=== PATIENT | female | born 1950 | race Caucasian/White ===

== ENCOUNTER → 2016-08-24 | Outpatient (CLI) | payer MEDICARE ==
[~2016-08-24] MED LIST: ASPIRIN81 M2 PO; CARBAMAZEPINE300 MG PO; CELEXA20 MG PO; CLONIDINE PO; CLOPIDOGREL75 MG PO; CRANBERRY200 MG PO; DILTIAZEM 24HR240 M2 PO; GABAPENTIN300 M2 PO; HUMALOG KW100 UNIT/1; HYDROCODON-ACE1 EAC5 PO; IRON134 MG PO; ISOSORBIDE DINI30 MG PO; K-LOR HOSPITAL20 ME1 PO; LASIX80 MG PO; LOSARTAN POTASS50 MG PO; NITROSTAT0.4 MG SL; PREDNISONE PO; REMERON SOLTAB15 M1 PO; ROSUVASTATIN CA20 MG PO; SINGULAIR PO; SYMBICORT INH; TIROSINT25 MCG PO; TRESIBA FL100 UNIT/1 SUBQ; VITAMIN D35000 UNI1 PO; ZANTAC150 MG PO; ZITHROMAX500 MG PO; ZYRTEC10 M2 PO
--- NOTE | ~2016-08-24 | CR63 ---
[facility] A Service of [facility] RADIOLOGY TEXT RESULTS PATIENT: SHAYNE GONZALEZ LOCATION: [facility] : 50 UNIT #: [id number] AGE: [address]: KEHINDE ESCOBAR APRN SEX: F ORDER DR: [id number] [facility] [address] [facility]. [place], [place] [address] [id number] O MR#: [id number] Acc #: [id number] NAME: SHAYNE GONZALEZ : 1950 SEX: F STUDY DATE/TIME: 08/24/2016 10:37 UNIT: [facility] ROOM: STUDY DESCRIPTION: CR Chest 2 View Attending Physician: Ella Escobar Aprn Ordering Physician: Ella Escobar Aprn MEDICAL IMAGING REPORT This report is preliminary unless electronic signature is present EXAM Two views chest, 08/24/2016. HISTORY Cough. 1 TECHNIQUE PA and lateral radiographs of the chest are presented. COMPARISON STUDIES No comparisons. FINDINGS Dual lead cardiac pacemaker implanted over left chest with leads extending through left subclavian vein and terminating at right atrial and right ventricular levels. Heart normal in size. Mediastinal contours within normal limits. The lungs are well inflated. There is no indication of acute infectious or inflammatory disease, pleural effusion, or pneumothorax. No suspicious nodule. Visualized upper abdomen unremarkable. Dictated by... João Turcios M.D. THIS IS AN ELECTRONICALLY VERIFIED REPORT João Turcios M.D. at 08/25/2016 6:04 PM RICHI/asad TD: 08/24/2016 14:20 JOB #: [id number] [facility] A Service of [facility] RADIOLOGY TEXT RESULTS PATIENT: SHAYNE GONZALEZ LOCATION: [facility] : 50 UNIT #: [id number] AGE: [address]: KEHINDE ESCOBAR APRN SEX: F ORDER DR: MEDICAL IMAGING REPORT Page 1 of 1 COPY
== END | disposition home or self-care (01) ==
LOC: CRAD 10:11
DX: R05 Cough (principal); R06.2 Wheezing
CPT/HCPCS: 71020

== ENCOUNTER 2016-09-09 11:27 | Inpatient (IN) | payer MEDICARE, MEDICAID ==
--- NOTE | ~2016-09-09 | DS ---
Unit #: [id number] #: [id number] Patient: SHAYNE GONZALEZ [id number] [address] [address] [id number] I MR#: [id number] NAME: SHAYNE GONZALEZ ROOM: 564 Age: 65 Sex: F Admission Date: 09/09/2016 : 1950 Discharge Date: 09/12/2016 Attending Physician: Prince Caldera M.D. Primary Care Physician: No Primary Care Physician DISCHARGE SUMMARY FINAL DIAGNOSES 1. Acute on chronic hypoxic respiratory failure. 2. Mediastinal lymphadenopathy. 3. Pneumonia. SECONDARY DIAGNOSES 1. Hypertension. 2. Hyperlipidemia. 3. Atrial fibrillation, not on anticoagulation. 4. Coronary artery disease, status post cardiac stent placement in the past. 5. Gastroesophageal reflux disease. 6. Chronic obstructive pulmonary disease. 7. Chronic respiratory failure on 2 L of oxygen per nasal cannula. 8. Bipolar disorder. 9. Urinary incontinence. CONSULT Dr. Carcamo - Pulmonary. HOSPITAL COURSE The patient was admitted with frequent falls and seen through the emergency room. She had difficulty breathing and she was diagnosed with acute on chronic respiratory failure. She was treated for COPD with exacerbation. She had a CAT scan of her chest which showed pulmonary infiltrates and adenopathy and it was thought that this could represent resolving pneumonia from previous episode, treated with antibiotics and steroids. She was seen in conjunction with pulmonary, and her community-acquired pneumonia was treated with IV Rocephin and Zithromax. She was evaluated, suitable and stable for discharge and was subsequently discharged with recommendations per pulmonary and outpatient followup. MEDICATIONS Medications on discharge include: 1. Prednisone taper. 2. Carbamazepine 300 mg p.o. daily. 3. Gabapentin 300 mg p.o. b.i.d. 4. Celexa 20 mg p.o. daily. 5. Remeron 15 mg p.o. at bedtime. 6. Cetirizine 10 mg p.o. daily. 7. Dulera 200 mcg, one inhalation twice daily. 8. Cranberry juice extra 200 mg p.o. at bedtime. 9. Cardizem 240 mg p.o. daily. 10. Crestor, one tablet p.o. daily per home dose. Unit #: [id number] #: [id number] Patient: SHAYNE GONZALEZ 11. Catapres 0.2 mg p.o. t.i.d. as needed for elevated blood pressure. 12. Losartan 50 mg p.o. at bedtime. 13. Tresiba 80 units subcu at bedtime. 14. Humalog sliding scale. 15. Ferrous sulfate 134 mg p.o. b.i.d. 16. Zantac 150 mg p.o. daily. 17. Singulair 10 mg p.o. daily. 18. Aspirin 81 mg p.o. daily. 19. Acetaminophen/hydrochlorothiazide 10/325, one tablet p.o. b.i.d. 20. Plavix 75 mg p.o. at bedtime. 21. Potassium 20 mEq p.o. b.i.d. 22. Tirosint 25 mcg p.o. daily. 23. Isosorbide dinitrate 30 mg p.o. daily. 24. Nitroglycerin/Nitrostat 0.4 mg sublingual as needed for chest pain. 25. Vitamin D3 5000 units p.o. daily. 26. Symbicort 160/4.5, one puff inhalational b.i.d. 27. Zithromax 500 mg, one tablet p.o. daily for four days. 28. Ceftin 500 mg p.o. b.i.d. for five days. 29. Prednisone 10 mg, two tablets p.o. daily for five days. She will be discharged in stable condition for outpatient followup. Time spent coordinating discharge is about 28 minutes. Dictated by... Jordyn Bates/olu TD: 09/13/2016 13:29 JOB #: [id number] DISCHARGE SUMMARY Page 1 of 1 X Bill English MD X DISCHARGE SUMMARY
--- NOTE | ~2016-09-09 | EKG ---
PATIENT: SHAYNE GONZALEZ UNIT #: [id number] Ventricular Rate: 60 BPM Atrial Rate: 60 BPM P-R Interval: 204 ms QRS Duration: 98 ms Q-T Interval: 432 ms QTC Calculation(Bezet): 432 ms P [place]: -4 degrees Calculated R [place]: 65 degrees Calculated T [place]: -6 degrees Diagnosis Line: Atrial-paced rhythm Diagnosis Line: Abnormal QRS-T angle, consider primary T wave Diagnosis Line: abnormality Diagnosis Line: Abnormal ECG Diagnosis Line: No previous ECGs available Diagnosis Line: Confirmed by ARGELIA MAGALLON MD ([id number]) on 09/10/2016 Diagnosis Line: 7:52:42 PM INTERPRETING MD: SHERITA WAGNER
--- NOTE | ~2016-09-09 | CR124 ---
[facility] A Service of [facility] RADIOLOGY TEXT RESULTS PATIENT: SHAYNE GONZALEZ LOCATION: [facility] 564- : 50 UNIT #: [id number] AGE: [address]: Katja Casiano MD SEX: F ORDER DR: [id number] [facility] [address] [facility]. [place], [place] [address] [id number] E MR#: [id number] Acc #: [id number] NAME: SHAYNE GONZALEZ : 1950 SEX: F STUDY DATE/TIME: 09/09/2016 12:50 UNIT: [facility] ROOM: STUDY DESCRIPTION: CR Foot 2 Views Rt Attending Physician: Nadeem Chase M.D. Ordering Physician: Katja Casiano M.D. Primary Care Physician: Primary Care Physician No MEDICAL IMAGING REPORT This report is preliminary unless electronic signature is present EXAM 3 views of the right foot. DATE: 09/09/2016 at 12:50 HISTORY 65-year-old female with right foot pain after falling today. COMPARISON None. FINDINGS No acute displaced fracture or joint dislocation is seen. Osteoarthritic type changes are demonstrated in the mid foot region, in particular, with joint space narrowing and dorsal marginal osteophyte formation. There is also a more mild osteoarthritic type changes in the interphalangeal joints of the toes and the first MTP joint. No fracture or dislocation or retained radiopaque foreign body. Posterior calcaneal spurs. IMPRESSION 1. No acute abnormality is seen within the right foot. 2. Osteoarthritic changes in the right foot, greatest at the midfoot region. Dictated by... Vida Carrasco M.D. THIS IS AN ELECTRONICALLY VERIFIED REPORT Vida Carrasco M.D. at 09/10/2016 7:04 AM MARCO ANTONIO/laurie TD: 09/09/2016 14:27 JOB #: [id number] [facility] A Service [facility] RADIOLOGY TEXT RESULTS PATIENT: SHAYNE GONZALEZ LOCATION: [facility] 564-01 : 50 UNIT #: [id number] AGE: [address]: Katja Casiano MD SEX: F ORDER DR: MEDICAL IMAGING REPORT Page 1 of 1 COPY
--- NOTE | ~2016-09-09 | CT16 ---
[facility] A Service of [facility] RADIOLOGY TEXT RESULTS PATIENT: SHAYNE GONZALEZ LOCATION: [facility] : 50 UNIT #: [id number] AGE: [address]: Nadeem Chase MD SEX: F ORDER DR: [id number] [facility] [address] [facility] [place], [place] [address] [id number] E MR#: [id number] Acc #: [id number] NAME: SHAYNE GONZALEZ : 1950 SEX: F STUDY DATE/TIME: 09/09/2016 13:26 UNIT: [facility] ROOM: STUDY DESCRIPTION: CT Angio Chest for PE Attending Physician: Nadeem Chase M.D. Ordering Physician: Katja Casiano M.D. Primary Care Physician: Primary Care Physician No MEDICAL IMAGING REPORT This report is preliminary unless electronic signature is present EXAM CT of the chest INDICATIONS Cough. Elevated D-dimer. Weakness. TECHNIQUE CT angiography of the chest utilizing 80 mL Isovue-370 IV contrast. Coronal 3-D MIP reconstructions and standard sagittal reconstructions were obtained. This CT exam was performed with one or more of the following radiation dose reduction techniques: automatic exposure control, adjustment of mA and/or kV according to patient size, and iterative reconstruction. COMPARISON Chest radiograph dated 09/09/2016 FINDINGS There is no pulmonary embolus. No thoracic aortic aneurysm or dissection. There are patchy bilateral airspace opacities. This is most prominent in the lower lobes and in the right middle lobe. There is diffuse bronchial wall thickening which is in the setting of acute or chronic bronchitis. There is trace bilateral pleural effusions. Bulky mediastinal lymphadenopathy is noted. There is conglomeration of right paratracheal lymph nodes in the superior mediastinum measuring 3.3 x 2.5 cm. There is an AP window lymph node measuring 1.4 x 2.1 cm. There are several 1 cm hilar lymph nodes. No pericardial effusion. There are extensive coronary artery calcifications. [facility] A Service of [facility] RADIOLOGY TEXT RESULTS PATIENT: SHAYNE GONZALEZ LOCATION: [facility] : 50 UNIT #: [id number] AGE: [address]: Nadeem Chase MD SEX: F ORDER DR: Limited images of the upper abdomen were obtained. The liver appears morphologically cirrhotic. No acute osseous abnormalities. IMPRESSION 1. Negative for pulmonary embolus. 2. Patchy bilateral airspace opacities in both lungs with an area of consolidation in the right middle lobe. This is most consistent with a multifocal pneumonia. 3. Bronchial wall thickening, seen in the setting of acute or chronic bronchitis. 4. Bulky mediastinal lymphadenopathy and prominent hilar lymphadenopathy. This is likely reactive due to the patient's infectious process, however, close followup is warranted to differentiate from potentially malignant process. 5. Trace bilateral pleural effusion. 6. Abnormal morphology of the liver strongly supporting background of cirrhosis. Dictated by... Rian Javier M.D. THIS IS AN ELECTRONICALLY VERIFIED REPORT Rian Javier M.D. at 09/09/2016 3:14 PM C/maximino TD: 09/09/2016 15:05 JOB #: [id number] MEDICAL IMAGING REPORT Page 1 of 1 COPY
--- NOTE | ~2016-09-09 | A ---
[facility] Nutrition Therapy DATE: 09/10/16 Patient: SHAYNE GONZALEZ Physician: MAGALIS Address: [address] [place] [address] Room/Bed: [address] [place] [address], Zip: [place] [address] Admit Date: 09/09/16 Date of : [birth year] Height: 5 7 Weight: 238 108 NUTRITIONAL ASSESSMENT: REASON: 1 pt RE: pressure ulcer 65 yo female admitted for respiratory failure PMH: Chronic respiratory failure, COPD, DM, HTN, HLD, CAD, atrial fibrillation, GERD, bipolar disorder Anthropometrics: Ht: 5'7" Wt: 108.2 kg (238#) BMI: 37.4 Labs: Na++ 133, Cl- 94, Gluc 344, Alb 3.4, POC 413, GFR 47.4 Meds: Lipitor, NaCl, Novolog, Solu-medrol, Ferrous Gluconate, Remeron, Levemir, Synthroid I/O & Bowel function: 480/2200, last BM 09/07 Skin Integrity: Pressure ulcer (coccyx), intact abrasion (LLE), scar (L chest, L knee), no edema noted Assessment: Chart reviewed, events noted. Pt reported ~24# wt loss over the past month d/t decreased appetite. Pt reports poor appetite for the past month. Pt reported eating ~75% of meals. RD tax services intern discussed importance of adequate protein/energy intake to promote wound healing. RD tax services intern encouraged Glucerna shakes, pt denied. Pt agreed to Ensure pudding. RD tax services intern gave verbal diabetic diet education. Pt reported not eating consistently throughout the day d/t poor appetite. RD encouraged consistent meals throughout the day and addition of protein with crabohydrate foods. Pt verbalized understanding. Pt had no diet questions at this time. See recommendations below. Dx: Unintentional weight loss RT poor appetite AEB ~24# weight loss. Intervention: 1. Ensure pudding 2. Diet education 3. HH + CC diet Monitoring, Evaluation and Goals: 1. PO intake; consume >75% of meals and supplements 2. Skin; promote skin healing 3. Labs; WNL: gluc Recommendations: [facility] Nutrition Therapy DATE: 09/10/16 Patient: SHAYNE GONZALEZ Physician: MAGALIS Address: [address] Room/Bed: [address] [place] [address], Zip: [place] [address] Admit Date: 09/09/16 Date of : [birth year] Height: 5 7 Weight: 238 108 1. Please order butterscotch Ensure pudding BID w/ meals. 2. Add multivitamin to pt's current medication regimen to promote wound healing. 3. Optimize pt's insulin regimen d/t pt's elevated blood glucose levels. 4. Continue to encourage adequate kcal and protein intake Pt is at a mild nutritional risk. RD will f/u per protocol. Respectfully, Tawana Lock, Education Managers Neel Fried MS, RD, LD [employer] and Nutritional Services [facility] cc: client file
--- NOTE | ~2016-09-09 | CO ---
Unit #: [id number] #: [id number] Patient: SHAYNE GONZALEZ [id number] [facility]. [place], [place] [address] [id number] I MR#: [id number] NAME: SHAYNE GONZALEZ ROOM: 564 Age: 65 Sex: F Admission Date: 09/09/2016 : 1950 Attending Physician: Prince Caldera M.D. Consultation Date: 09/11/2016 CONSULTATION REPORT REASON FOR CONSULTATION Respiratory failure, COPD, pneumonia. HISTORY OF PRESENT ILLNESS The patient is a 65-year-old female, who carries a diagnosis of COPD and chronic respiratory failure, who was on oxygen in [place]. She apparently moved here to [place] and her oxygen was not continued. She had some increasing shortness of breath, wheezing, went to an immediate care center and was treated with antibiotics and steroids. She cannot identify the antibiotics. She improved, but then worsened. It was primarily weakness and falls. She did have shortness of breath, wheezing, and cough. No definite sputum production. There was no fever or hemoptysis. In the emergency room, she has had a variety of x-rays, all of which were basically negative except for CT angiogram. That showed no PE, significant adenopathy and some pulmonary infiltrates, right hilar and left lower lobe consistent with pneumonia. She does feel better today. PAST MEDICAL HISTORY Remarkable for COPD, chronic respiratory failure, obstructive sleep apnea diagnosed 10 years ago and noncompliant with CPAP, diabetes, hypertension, and hyperlipidemia. She denied any heart disease to my history, although atrial fibrillation and coronary artery disease are listed in the EHR. She has gastroesophageal reflux and bipolar disorder as well as chronic pain primarily her back. MEDICATIONS At home, she has a Combivent inhaler and albuterol inhaler and albuterol nebulizer, but no controlling agents. She uses all of those b.i.d. or t.i.d. except for the nebulizer. Other medications according to her med rec sheet include hydrocodone, gabapentin, potassium, rosuvastatin, Synthroid, Celexa, carbamazepine, Zyrtec, Singulair, Zantac, Lasix, diltiazem, aspirin, Imdur, Catapres, Nitrostat, losartan, iron, Plavix , Tresiba, Humalog, and Remeron. ALLERGIES Morphine, oxycodone, Paxil, Phenergan, Serzone, and scopolamine. SOCIAL HISTORY Quit smoking 20 years ago. FAMILY HISTORY COPD in her mother and father. REVIEW OF SYSTEMS Unit #: [id number] #: [id number] Patient: SHAYNE GONZALEZ No definite fever or chills. No chest pain, palpitations, abdominal pain, melena, hematochezia, hematuria, dysuria, focal weakness, paresthesias, leg pain, swelling. She does snore, occasionally has sleepiness. Again, she does not have oxygen at home now, unclear why that was not continued. PHYSICAL EXAMINATION GENERAL: Reveals the patient, who is in no acute distress, sitting in a chair at bedside on her nasal cannula oxygen at 3 L. VITAL SIGNS: She had a T-max of a 100, but now her fever curve is better and she is afebrile, pulse 72, respiratory rate 16, blood pressure is 111/55. She is 5 feet 7 inches, 236 pounds, BMI is 37. HEENT: Pupils equal, round, and reactive to light. Sclerae anicteric. Head, atraumatic. NECK: Supple. No supraclavicular or cervical adenopathy appreciated. CHEST: Expiratory wheeze. A few scattered crackles. No consolidation, no stridor. CARDIAC: Reveals distant heart tones. Regular rate and rhythm. No pathologic murmur, rub, or gallop. ABDOMEN: Obese, soft, and nontender. EXTREMITIES: Reveal no clubbing, cyanosis, or edema. No calf tenderness. SKIN: Multiple tattoos. No acute rash. She tells me she has a skin breakdown on her sacrum and that was not evaluated. DIAGNOSTIC STUDIES IMAGING STUDIES: Chest x-ray was fairly unremarkable. CT scan revealed a right hilar and left lower lobe infiltrate. There was some mild bronchiectasis at the bases. She had significant adenopathy. LABORATORY RESULTS: BUN 25, creatinine 1.0, glucose is 417. BNP 215. Hemoglobin A1c 9.2. Procalcitonin 0.12. Lactic acid 1.7. INR was normal. Initial cardiac enzymes negative. White blood cell count 9.7, hemoglobin 10.7, platelet count 128. Urinalysis; 2+ leukocyte esterase, 5 to 10 white cells, 4+ bacteria. Blood cultures, no growth so far. Urine, Klebsiella pneumoniae sensitive to Rocephin. CARDIOVASCULAR STUDIES: Rhythm strips paced, atrial paced, did have some nonspecific ST-T wave changes. IMPRESSION 1. Chronic obstructive pulmonary disease with exacerbation. 2. Respiratory failure acute on chronic. 3. Abnormal CAT scan with pulmonary infiltrates and adenopathy, this could represent resolving pneumonia from her previous episode treated with antibiotics and steroids. 4. Obstructive sleep apnea, not on CPAP. 5. Diabetes and marked hyperglycemia. 6. Multiple medical problems listed above. PLAN I agree with current antibiotics, steroids, but I will try to decrease the dose given her marked hyperglycemia. I will proceed dosing with NPH insulin. Nebulized bronchodilators, but she would benefit from some type of controlling agent. An inhaled corticosteroids, long-acting beta agonist will be added. Consider LAMA as an outpatient. Continue oxygen for now and check room air oxygenation needs at discharge. She may need oxygen at home. In the office, she will need PFTs and consider repeat nocturnal polysomnography. She will also need short-term CT scan followup and all this has been discussed with the patient. Unit #: [id number] #: [id number] Patient: SHAYNE GONZALEZ Thank you very much for allowing me to participate in the care of Ms. Gonzalez. Dictated by... Wil Carcamo M.D. ALMAS/stephan TD: 09/12/2016 01:58 JOB #: [id number] CONSULTATION REPORT Page 1 of 1 X Wil Carcamo MD X CONSULTATION REPORT
--- NOTE | ~2016-09-09 | CR63 ---
[facility] A Service of [facility] RADIOLOGY TEXT RESULTS PATIENT: SHAYNE GONZALEZ LOCATION: [facility] [address] : [birth year] UNIT #: [id number] AGE: [address]: Katja Casiano MD SEX: F ORDER DR: [id number] [facility] [address] [place], [place] [address] [id number] E MR#: [id number] Acc #: [id number] NAME: SHAYNE GONZALEZ : 1950 SEX: F STUDY DATE/TIME: 09/09/2016 10:03 UNIT: [facility] ROOM: STUDY DESCRIPTION: CR Chest 2 View Attending Physician: Nadeem Chase M.D. Ordering Physician: Hector Phipps Aprn Primary Care Physician: No Primary Care Physician MEDICAL IMAGING REPORT This report is preliminary unless electronic signature is present EXAM PA and lateral chest. DATE 09/09/2016 at 1003 HISTORY 65-year-old female with frequent falls, for falls in the past 24 hours. Cough and shortness of breath today. COMPARISON PA and lateral chest, 08/24/2016. FINDINGS Left chest wall pacemaker leads appear stable. No visible pneumothorax. Stable heart size, just at upper limits of normal. No pleural effusion, pneumothorax, or lung consolidations are identified. Study is attenuated by patient body habitus, particularly on the lateral image. Degenerative confluent spurring is demonstrated throughout the imaged thoracic spine on the lateral view. IMPRESSION No acute chest findings. No significant change compared to 08/24/2016. Dictated by... Vida Carrasco M.D. THIS IS AN ELECTRONICALLY VERIFIED REPORT Vida Carrasco M.D. at 09/10/2016 7:03 AM [facility]/asad [facility] A Service [facility] RADIOLOGY TEXT RESULTS PATIENT: SHAYNE GONZALEZ LOCATION: [facility] 564-01 : 50 UNIT #: [id number] AGE: [address]: Katja Casiano MD SEX: F ORDER DR: TD: 09/09/2016 12:18 JOB #: [id number] MEDICAL IMAGING REPORT Page 1 of 1 COPY
--- NOTE | ~2016-09-09 | CT71 ---
[facility] A Service of [facility] RADIOLOGY TEXT RESULTS PATIENT: SHAYNE GONZALEZ LOCATION: [facility] [address] : [birth year] UNIT #: [id number] AGE: [address]: Katja Casiano MD SEX: F ORDER DR: [id number] [facility] [address] [facility]. [place], [place] [address] [id number] E MR#: [id number] Acc #: [id number] NAME: SHAYNE GONZALEZ : 1950 SEX: F STUDY DATE/TIME: 09/09/2016 10:13 UNIT: [facility] ROOM: STUDY DESCRIPTION: CT Head Wo Contrast Attending Physician: Nadeem Chase M.D. Ordering Physician: Hector Phipps Aprn Primary Care Physician: No Primary Care Physician MEDICAL IMAGING REPORT This report is preliminary unless electronic signature is present EXAM Noncontrast CT head. Date: 09/09/2016 HISTORY Fell four times in the past 24 hours. Weakness today. History of cardiac disease, hypertension, diabetes, high cholesterol, atrial fibrillation. COMPARISON None. TECHNIQUE This CT exam was performed with one or more of the following radiation dose reduction techniques: automatic exposure control, adjustment of mA and/or kV according to patient size, and iterative reconstruction. FINDINGS No acute intracranial hemorrhage, mass lesion, mass effect or midline shift is seen. There is no CT evidence of acute or evolving infarct periventricular configuration is within normal limits. There is moderate mucosal thickening within the bilateral ethmoid sinuses, mild bilateral maxillary sinus mucosal thickening. Minimal opacification of the inferior tip of the left mastoid air cells. No acute displaced calvarial fracture. Mild hyperostosis frontalis internus. Small ostial osteoma projects from left frontal calvarium. IMPRESSION No acute intracranial findings. STAT * RESULT [facility] A Service of [facility] RADIOLOGY TEXT RESULTS PATIENT: SHAYNE GONZALEZ LOCATION: [facility] : [birth year] UNIT #: [id number] AGE: [address]: Katja Casiano MD SEX: F ORDER DR: Dictated by... Vida Carrasco M.D. THIS IS AN ELECTRONICALLY VERIFIED REPORT Vida Carrasco M.D. at 09/10/2016 7:03 AM MARCO ANTONIO/lien TD: 09/09/2016 12:18 JOB #: [id number] MEDICAL IMAGING REPORT Page 1 of 1 COPY
--- NOTE | ~2016-09-09 | HP ---
Unit #: [id number] #: [id number] Patient: SHAYNE GONZALEZ [id number] [facility] [place] [address] [place], [place] [address] [id number] E MR#: [id number] NAME: SHAYNE GONZALEZ ROOM: Age: 65 Sex: F Admission Date: 09/09/2016 : 1950 Attending Physician: Nadeem Chase M.D. Primary Care Physician: No Primary Care Physician HISTORY AND PHYSICAL CHIEF COMPLAINT Frequent falls. HISTORY OF PRESENT ILLNESS The patient is a 65-year-old female with past medical history of chronic respiratory failure, COPD, diabetes, hypertension, hyperlipidemia, atrial fibrillation, coronary artery disease, GERD and bipolar disorder who presented to the emergency department for evaluation of the above. The patient states that she has not been feeling well since early July 2016. She states that she moved to [place] from [place] on August 14, 2016. She was seen at a [facility] on the 25 of August and diagnosed with pneumonia and given an unknown antibiotic, as well as prednisone, which she completed as prescribed. She states that she continued to not feel well. She has been increasingly short of breath and has had a nonproductive cough. She denies any fever or chills. Of note, the patient is on oxygen at 2 liters per nasal cannula continuously; however, she has not had home oxygen since moving to [place]. She denies any chest pain. She has had decreased appetite but no vomiting or diarrhea. She had urinary incontinence at baseline. She states that she has been taking her medications as prescribed. Also of note, the patient reports that she started feeling weak within the past 24 hours. She has had 4 falls. She states that she hit her head and her left knee but denies any loss of consciousness. She also has had pain in the right foot since falling. She has been unable to bear weight on the right foot due to pain. In the emergency department temperature was 100, pulse 66, respirations 20. I do not have the ER triage sheet, but I was told by emergency room staff that oxygen saturation was in the mid 80s. Chest x-ray showed nothing acute. Laboratory notable for D-dimer of 2,016, glucose 344, lactic acid of 1.7. She was given Rocephin and azithromycin in the emergency department. She is being admitted to [facility] for evaluation and further treatment. PAST MEDICAL HISTORY 1. The patient denies any hospitalizations within the past year. 2. Hypertension. 3. Hyperlipidemia. 4. Atrial fibrillation, not on chronic anticoagulation. 5. Coronary artery disease status post cardiac stent placement. 6. GERD. 7. COPD. Unit #: [id number] #: [id number] Patient: SHAYNE GONZALEZ 8. Chronic respiratory failure, on 2 liters of oxygen per nasal cannula continuous. 9. Bipolar disorder. 10. Urinary incontinence. PAST SURGICAL HISTORY 1. Bilateral foot surgeries. 2. Knee surgery. 3. Cardiac catheterization. 4. Colonoscopy. 5. Cardiac stent placement. 6. Thyroidectomy for nodules. 7. Left buttocks surgery. 8. Pacemaker placement. SOCIAL HISTORY The patient moved to [place] August 14, 2016. She lives with her son. She quit smoking 20 years ago. There is no alcohol use. CODE STATUS Full code. FAMILY HISTORY Notable for her mother having a pacemaker. ALLERGIES I do not have information on allergies. These will need to be reviewed. HOME MEDICATIONS Hydrocodone, gabapentin, cranberry, potassium, rosuvastatin, levothyroxine, Celexa, carbamazepine, cetirizine, montelukast, ranitidine, furosemide, diltiazem, aspirin, isosorbide, clonidine, Nitrostat, losartan, iron, clopidogrel, Tresiba, Humalog, vitamin D, mirtazapine. Home medications will need to be reviewed and verified. REVIEW OF SYSTEMS A complete review of systems is negative except as indicated in the HPI. PHYSICAL EXAMINATION VITAL SIGNS: Temperature is 100, pulse 66, respirations 20, blood pressure 128/58, oxygen saturation, I was told, was in the mid 80s. GENERAL: The patient is a female who is awake and alert, in no acute distress. HEENT: The head is atraumatic. Mucous membranes are moist. NECK: Supple. Trachea is midline. CARDIOVASCULAR: Regular rate and rhythm. RESPIRATORY: Lungs demonstrate scattered wheezes and rhonchi. Breathing is not labored with conversation. ABDOMEN: Soft, nontender with bowel sounds present in all 4 quadrants. EXTREMITIES: Extremities show trace pedal edema. She is tender to palpation of the right ankle in the region of bilateral malleoli, as well as the mid foot. NEUROLOGIC: The patient is awake and alert. She follows commands. PSYCHIATRIC: Mood and affect are normal. The patient is cooperative. SKIN: Skin of examined areas is warm and dry. The patient does have skin breakdown in the sacral area with surrounding erythema. DIAGNOSTIC TESTS Unit #: [id number] #: [id number] Patient: SHAYNE GONZALEZ CARDIOVASCULAR: EKG shows atrial paced rhythm with rate of 60 beats per minute. IMAGING: CT of the head shows nothing acute. Chest x-ray shows nothing acute. Left knee x-ray shows no fracture. LABORATORY: Complete blood count notable for hemoglobin of 10.8, hematocrit 32.6, platelets 114. Troponin is less than 0.05. INR is 1.1. Comprehensive metabolic panel notable for sodium of 133 but corrects when accounting for glucose of 344. BUN is 21, creatinine 1.2. Albumin is 3.4. BNP is 215. D-dimer 2,016. Lactic acid 1.7. ASSESSMENT 1. The patient is a 65-year-old female with acute on chronic respiratory failure, hypoxic. 2. Pneumonia, clinical, community acquired. The patient received Rocephin and azithromycin in the emergency department. 3. COPD exacerbation. 4. Uncontrolled diabetes with an initial glucose of 344. 5. Normocytic anemia. The patient's hemoglobin is 10.8 with no baseline for comparison. 6. Thrombocytopenia. The patient's platelet count is 114 with no baseline for comparison. 7. Elevated D-dimer. 8. Hypertension. 9. Hyperlipidemia. 10. Atrial fibrillation, not on chronic anticoagulation. 11. Coronary artery disease status post cardiac stent placement. 12. GERD. 13. Bipolar disorder. 14. Sacral wound, present on admission. PLAN 1. Admit to intermediate level. 2. Healthy heart, consistent carb diet. 3. Fall precautions. 4. Supplemental oxygen, 2-4 liters, to maintain saturations greater than 92%. 5. CT of the chest PE protocol for further evaluation of elevated D-dimer and acute respiratory failure. 6. Blood cultures x2. 7. Sputum culture and sensitivity. 8. Procalcitonin level. 9. Rocephin IV and azithromycin IV pending further workup. 10. DuoNeb q.4 hours while awake and q.2 hours p.r.n. 11. Solu-Medrol 80 mg IV q.12 hours. 12. Mucinex 600 mg p.o. b.i.d. 13. Serial cardiac enzymes. 14. PT/OT to evaluate and treat. 15. Hemoglobin A1C. 16. Low dose sliding scale insulin with Accu-Cheks. 17. Wound care consult regarding sacral wound. 18. Right foot x-rays regarding pain, history of fall and inability to bear weight. 19. Tylenol p.r.n. Unit #: [id number] #: [id number] Patient: SHAYNE GONZALEZ 20. Repeat labs in the morning. 21. Additional workup and consultants based on above. 22. Regarding code status, the patient is a full code. Dictated by Jordyn Fishman/reanna TD: 09/09/2016 12:33 JOB #: [id number] HISTORY AND PHYSICAL Page 1 of 1 X Katja Casiano MD HISTORY AND PHYSICAL
--- NOTE | ~2016-09-09 | CR172 ---
[facility] A Service of [facility] RADIOLOGY TEXT RESULTS PATIENT: SHAYNE GONZALEZ LOCATION: [facility] 564-01 : [birth year] UNIT #: [id number] AGE: [address]: Katja Casiano MD SEX: F ORDER DR: [id number] [facility] [address]. [place], [place] [address] [id number] E MR#: [id number] Acc #: [id number] NAME: SHAYNE GONZALEZ : 1950 SEX: F STUDY DATE/TIME: 09/09/2016 9:59 UNIT: HELIO ROOM: STUDY DESCRIPTION: CR Knee 3 Views Lt Attending Physician: Nadeem Chase M.D. Ordering Physician: Hector Phipps Aprn Primary Care Physician: Primary Care Physician No MEDICAL IMAGING REPORT This report is preliminary unless electronic signature is present EXAM 3 views left knee, 09/09/2016 HISTORY 65-year-old female with left knee pain after 4 falls in the past 24 hours. COMPARISON None FINDINGS Left knee replacement changes are present. The prosthesis appears appropriately seated. No periprosthetic fracture is seen. There is enthesophyte formation at the superior margin of the patella. Small suprapatellar joint effusion is thought to be present. What appears be calcified loose body is seen at the posterior margin of the knee joint on the lateral view. There is spurring at the anterior tibial tubercle. IMPRESSION 1. Satisfactory appearance of the left knee prosthesis without periprosthetic fracture. The knee joint remains appropriately aligned. 2. Probable small suprapatellar joint effusion. 3. Suspected small calcified loose body in the posterior joint space measuring about 7.0 mm. Dictated by... Vida Carrasco M.D. THIS IS AN ELECTRONICALLY VERIFIED REPORT Vida Carrasco M.D. at 09/10/2016 7:03 AM Trey TD: 09/09/2016 12:13 [facility] A Service [facility] RADIOLOGY TEXT RESULTS PATIENT: SHAYNE GONZALEZ LOCATION: [facility] 564-01 : [birth year] UNIT #: [id number] AGE: [address]: Katja Casiano MD SEX: F ORDER DR: JOB #: [id number] MEDICAL IMAGING REPORT Page 1 of 1 COPY
[2016-09-09 09:54] LABS: BASOPHIL% 0.6 % (0-2.5); EOSINOPHIL% 0.5 % (0.0-7.0); HEMATOCRIT 32.6 % (35.0-45.0); HEMOGLOBIN 10.8 gm/dL (12.0-16.0); LYMPHOCYTE# 0.6 X10e3 (1.0-3.5); LYMPHOCYTE% 10.3 % (17.0-45.0); MEAN CELL VOLUME 87.4 FL (83-96); MEAN CORPUSCULAR HEMOGLOBIN 28.9 PG (28-34); MEAN CORPUSCULAR HGB CONC 33.1 g/dL (30-36); MONOCYTE# 0.5 X10e3 (0-1.0); MONOCYTE% 8.9 % (3.0-12.0); NEUTROPHIL# 4.7 X10e3 (1.5-7.1); NEUTROPHIL% 79.7 % (40-75); PLATELET COUNT 114 X10e3 (140-420); RED BLOOD COUNT 3.73 X10e (3.90-5.30); RED CELL DISTRIBUTION WIDTH 15.9 % (11.0-15.5); WHITE BLOOD COUNT 5.9 X10e3 (4.0-10.5)
[2016-09-09 09:59] LABS: DIFF IND NO
[2016-09-09 10:04] LABS: POC - CKMB 1.7 ng/mL (0.0-7.9); POC - TROPONIN <0.05 ng/mL (<=0.05)
[2016-09-09 10:14] LABS: INR 1.1; PARTIAL THROMBOPLASTIN TIME 27.8 SECONDS (23.5-31.3)
[2016-09-09 10:31] LABS: ALBUMIN SERUM 3.4 g/dL (3.5-5.0); BILIRUBIN,TOTAL 0.6 mg/dL (0.2-2.0); BUN/CREATININE RATIO 17.5; CALCIUM SERUM 8.7 mg/dL (8.4-10.2); CREATININE SERUM 1.2 mg/dL (0.6-1.4); GLOM FILT RATE Estimated 47.4 mL/min (>60); POTASSIUM 3.7 mmol/L (3.5-5.1); PROTEIN TOTAL SERUM 6.7 g/dL (6.0-8.3)
[~2016-09-09 11:27] MED LIST changes: -PREDNISONE PO; -SYMBICORT INH; -ZITHROMAX500 MG PO
[2016-09-09 11:44] LABS: POC - CKMB 1.9 ng/mL (0.0-7.9); POC - TROPONIN <0.05 ng/mL (<=0.05)
[2016-09-09 13:06] LABS: URINE SOURCE CLEAN CATCH
[2016-09-09 13:10] LABS: URINE APPEARANCE CLOUDY; URINE BILIRUBIN NEG (NEG); URINE BLOOD TRACE (NEG); URINE COLOR YELLOW; URINE GLUCOSE NEG (NEG); URINE KETONE NEG (NEG); URINE LEUKOCYTE ESTERASE 2+ (NEG); URINE NITRATE NEG (NEG); URINE PH 5.5 (5-8); URINE PROTEIN 1+ (NEG); URINE SPECIFIC GRAVITY 1.011 (1.003-1.035); URINE UROBILINOGEN 0.2 MG/DL (NEG)
[2016-09-09 13:12] LABS: CULTURE INDICATED? YES; URBCS1 AUWI 0-2 /[HPF] (0-2); URINE BACTERIA AUWI 4+ (NEGATIVE); URINE SQUAMOUS EPITHELIAL CELL NONE SEEN /[HPF]; UWBCS1 AUWI 50-100 (0-5)
[2016-09-09 13:23] LABS: URINE GRANULAR CAST 0-2 /[HPF]; URINE MUCUS PRESENT; URINE TRANSITIONAL EPI CELLS OCCAS /[HPF]
[2016-09-09 18:06] LABS: %MB 0.8 % (0.0-4.0); MB 2.2 ng/ml
[2016-09-10 08:38] LABS: %MB 1.2 % (0.0-4.0); MB 1.9 ng/ml
[2016-09-10 14:56] LABS: HEMATOCRIT 32.4 % (35.0-45.0); HEMOGLOBIN 10.6 gm/dL (12.0-16.0); MEAN CELL VOLUME 87.6 FL (83-96); MEAN CORPUSCULAR HEMOGLOBIN 28.7 PG (28-34); MEAN CORPUSCULAR HGB CONC 32.8 g/dL (30-36); MEAN PLATELET VOLUME 9.2 FL (6.5-11.5); RED BLOOD COUNT 3.7 X10e (3.90-5.30); RED CELL DISTRIBUTION WIDTH 15.8 % (11.0-15.5); WHITE BLOOD COUNT 6.6 X10e3 (4.0-10.5)
[2016-09-10 15:27] LABS: CALCIUM SERUM 8.7 mg/dL (8.4-10.2); GLOM FILT RATE Estimated 59.1 mL/min (>60); MAGNESIUM 2.1 mg/dL (1.6-3.0); POTASSIUM 3.3 mmol/L (3.5-5.1)
[2016-09-10 15:57] LABS: THYROID STIMULATING HORMONE 0.3 uIU/ml (0.34-5.60)
[2016-09-10 16:04] LABS: FREE THYROXIN (T4) 0.78 ng/dL (0.58-1.64)
[2016-09-11 07:31] LABS: HEMATOCRIT 32.7 % (35.0-45.0); HEMOGLOBIN 10.7 gm/dL (12.0-16.0); MEAN CELL VOLUME 87.6 FL (83-96); MEAN CORPUSCULAR HEMOGLOBIN 28.7 PG (28-34); MEAN CORPUSCULAR HGB CONC 32.8 g/dL (30-36); MEAN PLATELET VOLUME 9.4 FL (6.5-11.5); RED BLOOD COUNT 3.73 X10e (3.90-5.30); RED CELL DISTRIBUTION WIDTH 15.7 % (11.0-15.5); WHITE BLOOD COUNT 9.7 X10e3 (4.0-10.5)
[2016-09-11 07:49] LABS: INR 1.1; PROTHROMBIN TIME (PATIENT) 11.8 SECONDS (9.6-11.5)
[2016-09-11 08:16] LABS: ALBUMIN SERUM 3.2 g/dL (3.5-5.0); BILIRUBIN,TOTAL 0.4 mg/dL (0.2-2.0); CALCIUM SERUM 8.9 mg/dL (8.4-10.2); GLOM FILT RATE Estimated 59.1 mL/min (>60); MAGNESIUM 2.3 mg/dL (1.6-3.0); POTASSIUM 4.2 mmol/L (3.5-5.1); PROTEIN TOTAL SERUM 6.2 g/dL (6.0-8.3)
[2016-09-12 05:40] LABS: HEMATOCRIT 31.4 % (35.0-45.0); HEMOGLOBIN 10.4 gm/dL (12.0-16.0); MEAN CELL VOLUME 86.5 FL (83-96); MEAN CORPUSCULAR HEMOGLOBIN 28.8 PG (28-34); MEAN CORPUSCULAR HGB CONC 33.3 g/dL (30-36); RED BLOOD COUNT 3.63 X10e (3.90-5.30); RED CELL DISTRIBUTION WIDTH 15.6 % (11.0-15.5); WHITE BLOOD COUNT 9.1 X10e3 (4.0-10.5)
[2016-09-12 07:13] LABS: BUN/CREATININE RATIO 30.9; CALCIUM SERUM 9.3 mg/dL (8.4-10.2); CREATININE SERUM 1.1 mg/dL (0.6-1.4); GLOM FILT RATE Estimated 52.7 mL/min (>60); MAGNESIUM 2.5 mg/dL (1.6-3.0); POTASSIUM 4.3 mmol/L (3.5-5.1)
[2016-09-12] MEDS ORDERED: SYMBICORT INH (14:23)
[2016-09-12] MEDS ORDERED: PREDNISONE PO (14:24)
[2016-09-12] MEDS ORDERED: ZITHROMAX500 MG PO (14:26)
[2016-09-15 16:14] LABS: HISTO AG URINE SPECIMEN Urine (())
== END 2016-09-12 15:03 | disposition home or self-care (01) | DRG 189 ==
LOC: CED 11:27 → CEDOF 12:00 → C5C 09-10 01:27
PROVIDERS: Emergency Medicine; Family Medicine; Internal Medicine; Nurse Practitioner; Nurse Practitioner Family
DX: J96.21 Acute and chronic respiratory failure with hypoxia (principal); J18.9 Pneumonia, unspecified organism; L89.153 Pressure ulcer of sacral region, stage 3; I48.91 Unspecified atrial fibrillation; D69.6 Thrombocytopenia, unspecified; J44.0 Chronic obstructive pulmonary disease with (acute) lower respiratory infection; E11.65 Type 2 diabetes mellitus with hyperglycemia; J44.1 Chronic obstructive pulmonary disease with (acute) exacerbation; N39.0 Urinary tract infection, site not specified; R59.1 Generalized enlarged lymph nodes; I10 Essential (primary) hypertension; E78.5 Hyperlipidemia, unspecified; I25.10 Atherosclerotic heart disease of native coronary artery without angina pectoris; Z95.5 Presence of coronary angioplasty implant and graft; K21.9 Gastro-esophageal reflux disease without esophagitis; F31.9 Bipolar disorder, unspecified; R32 Unspecified urinary incontinence; Z79.4 Long term (current) use of insulin; Z95.0 Presence of cardiac pacemaker; D64.9 Anemia, unspecified; G47.33 Obstructive sleep apnea (adult) (pediatric); Z87.891 Personal history of nicotine dependence; Z88.5 Allergy status to narcotic agent; Z88.8 Allergy status to other drugs, medicaments and biological substances; Z82.49 Family history of ischemic heart disease and other diseases of the circulatory system; Z83.6 Family history of other diseases of the respiratory system; B96.1 Klebsiella pneumoniae [K. pneumoniae] as the cause of diseases classified elsewhere; Z79.01 Long term (current) use of anticoagulants
CPT/HCPCS: 36415; 70450; 71020; 71275; 73562; 73620; 80048; 80053; 81003; 82308; 82550; 82553; 82947; 83036; 83605; 83735; 83880; 84439; 84443; 84484; 85025; 85027; 85379; 85610; 85730; 87040; 87086; 87088; 87186; 87385; 93005; 94640; 94664; 94760; 96360; 97110; 97116; 97162; 97166; 97530; 97535; 99285; G8978-GP; G8979-GP; G8987-GO; G8988-GO; G8989-GO; J0360; J0456; J0696; J1815; J2920; J2930; Q9967

== ENCOUNTER → 2016-10-30 | Outpatient (CLI) | payer MEDICARE, MEDICAID ==
[~2016-10-30] MED LIST changes: +PREDNISONE PO; +SYMBICORT INH; +ZITHROMAX500 MG PO
--- NOTE | ~2016-10-30 | MY11 ---
[facility] A Service of [facility] RADIOLOGY TEXT RESULTS PATIENT: SHAYNE GONZALEZ LOCATION: [facility] : 50 UNIT #: [id number] AGE: [address]: Cody Bynum MD SEX: F ORDER DR: [id number] [facility] [address] [place], [place] [address] [id number] O MR#: [id number] Acc #: [id number] NAME: SHAYNE GONZALEZ : 1950 SEX: F STUDY DATE/TIME: 10/30/2016 11:17 UNIT: [facility] ROOM: STUDY DESCRIPTION: MY Mammogram Screening Dig Jasson Attending Physician: Cody Bynum M.D. Referring Physician: Cody Bynum M.D. Ordering Physician: Cody Bynum M.D. Primary Care Physician: Cody Bynum M.D. MEDICAL IMAGING REPORT This report is preliminary unless electronic signature is present EXAM Digital screening mammogram, 10/30/2016, [facility]. HISTORY 65-year-old woman positive family history, maternal aunt. Annual screen. COMPARISON Mammograms 03/15/2013, 03/16/2014. TECHNIQUE Digital imaging of each breast was completed utilizing screening protocol. Review includes FDA-approved CAD device. FINDINGS Breast parenchyma is predominantly fatty replaced bilaterally. I see no mass. There are no suspicious microcalcifications and no architectural deformity. IMPRESSION Negative mammogram. Annual screening recommended. Patients over the age of 40 are entered into a reminder system with target due date for the next mammogram. A result letter will also be sent to the patient. BIRADS: 1 Negative Dictated by... Calin Javier M.D. THIS IS AN ELECTRONICALLY VERIFIED REPORT [facility] A Service of [facility] RADIOLOGY TEXT RESULTS PATIENT: SHAYNE GONZALEZ LOCATION: [facility] : [birth year] UNIT #: [id number] AGE: [address]: Cody Bynum MD SEX: F ORDER DR: Calin Javier M.D. at 11/05/2016 12:57 PM STEF/asad TD: 11/05/2016 12:36 JOB #: [id number] MEDICAL IMAGING REPORT Page 1 of 1 COPY
== END | disposition home or self-care (01) ==
LOC: CWCC 10:59
DX: Z12.31 Encounter for screening mammogram for malignant neoplasm of breast (principal); Z80.3 Family history of malignant neoplasm of breast
CPT/HCPCS: G0202

== ENCOUNTER → 2016-12-15 | Outpatient (CLI) | payer MEDICARE, MEDICAID ==
--- NOTE | ~2016-12-15 | CT55 ---
[facility] A Service of [facility] RADIOLOGY TEXT RESULTS PATIENT: SHAYNE GONZALEZ LOCATION: [facility] : 50 UNIT #: [id number] AGE: [address]: Wil Carcamo MD SEX: F ORDER DR: [id number] [facility] [address] [place], [place] [address] [id number] O MR#: [id number] Acc #: [id number] NAME: SHAYNE GONZALEZ : 1950 SEX: F STUDY DATE/TIME: 12/15/2016 11:46 UNIT: [facility] ROOM: STUDY DESCRIPTION: CT Chest W Con Attending Physician: Wil Carcamo M.D. Referring Physician: Wil Carcamo M.D. Ordering Physician: Wil Carcamo M.D. Primary Care Physician: Cody Bynum M.D. MEDICAL IMAGING REPORT This report is preliminary unless electronic signature is present EXAM CT scan of the chest with contrast. INDICATIONS Follow up from pneumonia. TECHNIQUE CT chest performed following the administration of IV contrast. Coronal and sagittal reformatted images were obtained. This CT exam was performed with one or more of the following radiation dose reduction techniques: automatic exposure control, adjustment of mA and/or kV according to patient size, and iterative reconstruction. COMPARISON 09/09/2016. FINDINGS The lung saenz are clear. There is no suspicious pulmonary nodule or airspace consolidation. The mediastinal lymphadenopathy has decreased in size. Index node in the right paratracheal region on image 21 measures 2.2 x 1.6 cm. Previously, it was 3.3 x 2.5 cm. No new adenopathy. No pleural effusion. Limited imaging of the upper abdomen is unremarkable. The bone windows are unremarkable. IMPRESSION Interval improvement in the appearance of the chest. The previously noted infiltrates within the lungs in the bilateral pleural effusions have resolved. The mediastinal lymphadenopathy has decreased in size. Dictated by... Ishan Muniz M.D. [facility] A Service of [facility] RADIOLOGY TEXT RESULTS PATIENT: SHAYNE GONZALEZ LOCATION: [facility] : 50 UNIT #: [id number] AGE: [address]: Wil Carcamo MD SEX: F ORDER DR: THIS IS AN ELECTRONICALLY VERIFIED REPORT Ishan Muniz M.D. at 12/16/2016 4:59 PM Elie TD: 12/16/2016 16:24 JOB #: [id number] MEDICAL IMAGING REPORT Page 1 of 1 COPY
--- NOTE | ~2016-12-15 | PFT ---
[id number] [facility] [address] [place], [place] [address] [id number] O MR#: [id number] NAME: SHAYNE GONZALEZ ROOM: SEX: F STUDY DATE/TIME: : 1950 AGE: 66 STUDY DESCRIPTION: Attending Physician: Wil Carcamo M.D. Referring Physician: Wil Carcamo M.D. Primary Care Physician: Cody Bynum M.D. PULMONARY DIAGNOSTIC REPORT EXAM Pulmonary Function Test DESCRIPTION Spirometry is suggestive of a mild restrictive defect. There is no significant response to bronchodilators. Flow volume loop is fairly unremarkable but is consistent with a restrictive defect. Lung volumes reveal some mild air trapping. ERV is reduced which can be seen in obesity. Diffusion capacity is moderately reduced. Isolated reduced diffusion capacity can be seen in early interstitial lung disease, pulmonary vascular disease, anemia, etc. Dictated by... Wil Carcamo M.D. ALMAS/olu TD: 12/16/2016 07:44 JOB #: [id number] PULMONARY DIAGNOSTIC REPORT Page 1 of 1
[2016-12-15 17:16] LABS: POC - CREATININE 0.75 mg/dL (0.44-1.03); POC - GFR >60.0 mL/min (>60)
== END | disposition home or self-care (01) ==
LOC: CRC 09:37
PROVIDERS: Internal Medicine
DX: J18.9 Pneumonia, unspecified organism (principal); R93.8 Abnormal findings on diagnostic imaging of other specified body structures; Z87.891 Personal history of nicotine dependence
CPT/HCPCS: 71260; 82565; 94060; 94726; 94729; Q9967